=== PATIENT | female | born 1965 | race Caucasian/White ===

== ENCOUNTER 2021-12-15 12:09 | Outpatient (CLI) | payer OTHER, SELFPAY ==
--- NOTE | ~2021-12-15 | XR_ITS ---
XR elbow RT min 3V DATE: 12/15/2021 12:39 INDICATION: Distal humeral fracture TECHNIQUE: 4 views of right elbow COMPARISON: None FINDINGS: There is osteoarthritic change at the articulation of the humerus and ulna, including joint space narrowing and spurring the coronoid process. No fracture or dislocation or joint effusion. No periosteal reaction or bone destruction is detected. IMPRESSION: Osteoarthritis No recent fracture, dislocation or joint effusion is detected Reviewed, dictated and finalized at location B.
[2021-12-15 12:30] LABS: Basophils Absolute Auto 0.05 K/mm3 (0.00-0.10); Basophils Percent Auto 0.8 % (0.0-1.0); Eosinophils Absolute Auto 0.07 K/mm3 (0.02-0.50); Eosinophils Percent Auto 1.1 % (1.0-6.0); Hematocrit 42.1 % (35.0-49.0); Hemoglobin 14.4 g/dL (12.0-15.0); Immature Granulocyte Absolute 0.02 K/mm3 (0.00-0.00); Immature Granulocyte Percent A 0.3 % (0.0-0.0); Lymphocytes Absolute Auto 2.04 K/mm3 (1.10-4.50); Mean Corpuscular HGB Conc 34.2 g/dL (32.0-36.0); Mean Corpuscular Hemoglobin 34.8 pg (27.0-31.0); Mean Corpuscular Volume 101.7 fL (78.0-102.0); Mean Platelet Volume 8.9 fl (9.2-11.8); Monocytes Absolute Auto 0.48 K/mm3 (0.10-0.90); Monocytes Percent Auto 7.3 % (2.0-11.0); Neutrophils Absolute Auto 3.9 K/mm3 (1.7-7.2); Neutrophils Percent Auto 59.5 % (50.0-70.0); Platelet Count Result 339 K/mm3 (150-420); Red Blood Count 4.14 M/mm3 (4.20-5.40); Red Cell Distribution Width 16.4 % (11.6-14.4); White Blood Count 6.6 K/mm3 (4.8-10.8)
[2021-12-15 12:40] LABS: Add Urine Microscopic? YES; Appearance Urine Clear (Clear); Bilirubin Urine Negative (Negative); Blood Urine 2+ (Negative); Color Urine Yellow (Yellow); Glucose Urine UA Negative (Negative); Ketones Urine Negative (Negative); Leukocyte Esterase Ur Negative (Negative); Nitrate Urine Negative (Negative); Protein Urine Trace (Negative); Specific Grav Ur 1.025 (1.010-1.020); pH Urine 6.5 (5.0-8.0)
[2021-12-15 12:50] LABS: WBC Urine 0-3 /hpf (0-3)
[2021-12-15 12:51] LABS: Bacteria Urine Trace /hpf; Calcium Oxalate Crystals Urine Present /hpf; Squamous Epithelial Cell Urine Few /hpf (Few)
[2021-12-15 12:52] LABS: Mucus Urine Few /lpf
[2021-12-15 12:59] LABS: Alanine Aminotransferase 17 U/L (14-59); Albumin Level 3.9 g/dL (3.4-5.0); Alkaline Phosphatase 73 U/L (46-116); Anion Gap 10 mmol/L (8-16); Aspartate Amino Transferase 15 U/L (15-37); Bilirubin,Total 0.4 mg/dL (0.00-1.00); Blood Urea Nitrogen 11 mg/dL (7-18); Calcium 9.3 mg/dL (8.5-10.1); Carbon Dioxide 26 mmol/L (21-32); Chloride 101 mmol/L (98-108); Estimated Glomerular Filt Rate > 60; Glucose 99 mg/dL (70-99); Osmolality Calculated 283 mOsm/kg (285-295); Sodium 137 mmol/L (136-145); Thyroid Stimulating Hormone 1.63 uIU/mL (0.36-3.74); Total Protein 7.9 g/dL (6.4-8.2)
== END 2021-12-15 12:10 | disposition home or self-care (01) ==
LOC: CHSLAB 12:16
PROVIDERS: PCP Family Medicine; Visit Provider Family Medicine
DX: S42.401D Unspecified fracture of lower end of right humerus, subsequent encounter for fracture with routine healing (principal); I10 Essential (primary) hypertension
CPT/HCPCS: 36415; 73080; 80053; 81001; 84443; 85025

== ENCOUNTER 2021-12-30 09:59 | Outpatient (RCR) | payer OTHER, SELFPAY ==
--- NOTE | 2021-12-30 10:56 | OTOPEVAL ---
Thank you for referring Maria Antonia Reed to [facility].? The patient is scheduled to be seen for therapy? ____x/week for ___ weeks. Please review, sign, date and return this plan of care DANIEL. I agree with and certify that the following plan of care is medically necessary. Referring Physician Date Admitting Provider: Attending Provider: Smith Gallardo MD Referring Provider: *OT Outpatient Evaluation Start: 12/30/21 07:12 Freq: Status: Active Protocol: Document 12/30/21 10:00 [facility] (Rec: 12/30/21 10:55 [facility] [id number]) Therapy Assessment Status Assessment Status Assessment Status Evaluation Outpatient Past Medical History Cardiovascular History Hx Hypertension Yes Evaluation Information Problem Diagnosis Decreased R elbow ROM Onset 09/30/21 Cause R elbow fracture Additional Evaluation Detail Quick DASH: 6.8% Subjective Information Patient reports that she Query Text:As Reported By Patient/ fractured her R elbow on . A police sergeant precinct was attempting to handcuff her and twisted her arm behind her back. Patient was splinted on 10/02/21 for ~4-6 weeks and reports that she had an X-ray recently that reported her fracture was healed. Patient also reports some numbness in her R thumb. Patient reports that her primary concern is limited ROM in the R elbow. Patient notes some pain with R elbow flexion and extension. Patient is independent with all ADLs and currently does not work. Diagnostic Tests X-Rays For This Problem Yes Prior Level of Function Activity Level (Last 3 Months) Hand Dominance Right Activity of Daily Living Ability Independent Indoor/Home Mobility Independent Community Mobility Independent Stairs Ability Independent Functional Cognition (Planning, Shopping Independent , Taking Medications) Cooking Yes Cleaning Yes Laundry Yes Shopping Yes Driving Yes Pain Assessment Timing of Pain Assessment Timing of Pain Assessment Assessment Pain Scale Pain Scale Used Numeric (1 - 10) Self Report Pain Assessment Right Elbow(s) Reported Pain Lev
--- NOTE | 2021-12-30 10:56 | OTOPEVAL ---
Thank you for referring Maria Antonia Reed to [facility].? The patient is scheduled to be seen for therapy? ____x/week for ___ weeks. Please review, sign, date and return this plan of care DANIEL. I agree with and certify that the following plan of care is medically necessary. Referring Physician Date Admitting Provider: Attending Provider: Smith Gallardo MD Referring Provider: *OT Outpatient Evaluation Start: 12/30/21 07:12 Freq: Status: Active Protocol: Document 12/30/21 10:00 [facility] (Rec: 12/30/21 10:55 [facility] [id number]) Therapy Assessment Status Assessment Status Assessment Status Evaluation Outpatient Past Medical History Cardiovascular History Hx Hypertension Yes Evaluation Information Problem Diagnosis Decreased R elbow ROM Onset 09/30/21 Cause R elbow fracture Additional Evaluation Detail Quick DASH: 6.8% Subjective Information Patient reports that she Query Text:As Reported By Patient/ fractured her R elbow on . A account officer was attempting to handcuff her and twisted her arm behind her back. Patient was splinted on 10/02/21 for ~4-6 weeks and reports that she had an X-ray recently that reported her fracture was healed. Patient also reports some numbness in her R thumb. Patient reports that her primary concern is limited ROM in the R elbow. Patient notes some pain with R elbow flexion and extension. Patient is independent with all ADLs and currently does not work. Diagnostic Tests X-Rays For This Problem Yes Prior Level of Function Activity Level (Last 3 Months) Hand Dominance Right Activity of Daily Living Ability Independent Indoor/Home Mobility Independent Community Mobility Independent Stairs Ability Independent Functional Cognition (Planning, Shopping Independent , Taking Medications) Cooking Yes Cleaning Yes Laundry Yes Shopping Yes Driving Yes Pain Assessment Timing of Pain Assessment Timing of Pain Assessment Assessment Pain Scale Pain Scale Used Numeric (1 - 10) Self Report Pain Assessment Right Elbow(s) Reported Pain Lev
== END 2022-01-05 18:22 | disposition home or self-care (01) ==
LOC: CHSOT 09:59
PROVIDERS: PCP Family Medicine; Visit Provider Family Medicine
DX: M25.521 Pain in right elbow (principal)
CPT/HCPCS: 97110; 97140; 97165

== ENCOUNTER 2022-01-23 09:12 | Outpatient (CLI) | payer OTHER, SELFPAY ==
--- NOTE | ~2022-01-23 | CT_ITS ---
EXAMINATION:CT lung screening DATE: 01/23/2022 09:34 INDICATION: Personal history of nicotine dependence. Current smoker. TECHNIQUE: Computed tomography (CT) of the chest was performed without intravenous contrast. Automate d exposure control and iterative reconstruction technique were employed. The dose-length product (DLP ) was 84.23 mGy-cm. COMPARISON: None. FINDINGS: There is mild emphysema. There is mild atelectasis bilaterally. A calcified left lung nodul e and calcified left hilar and mediastinal lymph nodes are consistent with old granulomatous disease. No pleural effusion. The heart size is normal. There are coronary artery calcifications. No pericard ial effusion. There is diffuse hepatic steatosis. There is mild thoracic spondylosis. IMPRESSION: 1. Lung-RADS category 1: Negative. Continue annual screening with noncontrast low-dose chest CT in 12 months. Reviewed, dictated and finalized at location A. IMPRESSION: 1. Lung-RADS category 1: Negative. Continue annual screening with noncontrast l ow-dose chest CT in 12 months.
== END 2022-01-23 09:13 | disposition home or self-care (01) ==
LOC: CHSIMG 09:17
PROVIDERS: PCP Family Medicine; Visit Provider Family Medicine
DX: Z12.2 Encounter for screening for malignant neoplasm of respiratory organs (principal); Z87.891 Personal history of nicotine dependence
CPT/HCPCS: 71271

== ENCOUNTER 2022-07-27 07:00 | Outpatient (CLI) | payer OTHER, SELFPAY ==
[2022-07-27 07:19] LABS: Basophils Absolute Auto 0.08 K/mm3 (0.00-0.10); Eosinophils Absolute Auto 0.26 K/mm3 (0.02-0.50); Eosinophils Percent Auto 3.2 % (1.0-6.0); Immature Granulocyte Absolute 0.02 K/mm3 (0.00-0.00); Immature Granulocyte Percent A 0.2 % (0.0-0.0); Lymphocytes Absolute Auto 2.57 K/mm3 (1.10-4.50); Lymphocytes Percent Auto 31.6 % (18.0-42.0); Mean Corpuscular HGB Conc 32.6 g/dL (32.0-36.0); Mean Corpuscular Hemoglobin 32.7 pg (27.0-31.0); Mean Corpuscular Volume 100.5 fL (78.0-102.0); Mean Platelet Volume 9.1 fl (9.2-11.8); Monocytes Absolute Auto 0.67 K/mm3 (0.10-0.90); Monocytes Percent Auto 8.2 % (2.0-11.0); Neutrophils Absolute Auto 4.5 K/mm3 (1.7-7.2); Neutrophils Percent Auto 55.8 % (50.0-70.0); Platelet Count Result 357 K/mm3 (150-420); Red Blood Count 4.28 M/mm3 (4.20-5.40); Red Cell Distribution Width 12.5 % (11.6-14.4); White Blood Count 8.1 K/mm3 (4.8-10.8)
[2022-07-27 07:58] LABS: Creatinine Urine 146.07 mg/dL (40-278); MALB Creatinine Ratio 8.8 mg/g (0-30); Microalbumin Urine Random < 13.0 mg/L
[2022-07-27 08:37] LABS: Anion Gap 8 mmol/L (8-16); Blood Urea Nitrogen 10 mg/dL (7-18); Calcium 9.6 mg/dL (8.5-10.1); Carbon Dioxide 30 mmol/L (21-32); Chloride 106 mmol/L (98-108); Cholesterol 260 mg/dL (0-200); Estimated Glomerular Filt Rate 58; Glucose 103 mg/dL (70-99); HDL Direct 64 mg/dL (40-60); LDL Cholesterol Calculated 175 mg/dL (<130); Osmolality Calculated 297 mOsm/kg (285-295); Potassium 5.3 mmol/L (3.5-5.1); Sodium 144 mmol/L (136-145); Triglycerides 105 mg/dL (0-150)
== END 2022-07-27 07:01 | disposition home or self-care (01) ==
LOC: CHSLAB 07:02
PROVIDERS: PCP Family Medicine; Visit Provider Family Medicine
DX: I10 Essential (primary) hypertension (principal)
CPT/HCPCS: 36415; 80048; 80061; 82043; 85025

== ENCOUNTER 2022-11-20 07:16 | Outpatient (CLI) | payer OTHER, SELFPAY ==
[2022-11-20 07:28] LABS: Appearance Urine Clear (Clear); Basophils Percent Auto 1.2 % (0.0-1.0); Bilirubin Urine Negative (Negative); Blood Urine 1+ (Negative); Color Urine Yellow (Yellow); Eosinophils Absolute Auto 0.24 K/mm3 (0.02-0.50); Eosinophils Percent Auto 2.8 % (1.0-6.0); Glucose Urine UA Negative (Negative); Hematocrit 42.4 % (35.0-49.0); Hemoglobin 14.3 g/dL (12.0-15.0); Immature Granulocyte Absolute 0.04 K/mm3 (0.00-0.00); Immature Granulocyte Percent A 0.5 % (0.0-0.0); Ketones Urine Negative (Negative); Leukocyte Esterase Ur Negative (Negative); Lymphocytes Absolute Auto 2.21 K/mm3 (1.10-4.50); Lymphocytes Percent Auto 25.5 % (18.0-42.0); Mean Corpuscular HGB Conc 33.7 g/dL (32.0-36.0); Mean Corpuscular Hemoglobin 33.6 pg (27.0-31.0); Mean Corpuscular Volume 99.5 fL (78.0-102.0); Mean Platelet Volume 8.5 fl (9.2-11.8); Monocytes Absolute Auto 0.48 K/mm3 (0.10-0.90); Monocytes Percent Auto 5.5 % (2.0-11.0); Neutrophils Absolute Auto 5.6 K/mm3 (1.7-7.2); Neutrophils Percent Auto 64.5 % (50.0-70.0); Nitrate Urine Negative (Negative); Platelet Count Result 321 K/mm3 (150-420); Protein Urine Negative (Negative); Red Blood Count 4.26 M/mm3 (4.20-5.40); Red Cell Distribution Width 13.2 % (11.6-14.4); Urobilinogen Urine 0.2 mg/dL (0.2-1.0); White Blood Count 8.7 K/mm3 (4.8-10.8)
[2022-11-20 07:52] LABS: Add Urine Microscopic? YES; Bacteria Urine 1+ /hpf; RBC Urine 0-2 /hpf (0-2); Squamous Epithelial Cell Urine Few /hpf (Few); WBC Urine None seen /hpf (0-3)
[2022-11-20 08:33] LABS: Alanine Aminotransferase 23 U/L (14-59); Albumin Level 4.5 g/dL (3.4-5.0); Alkaline Phosphatase 64 U/L (46-116); Anion Gap 9 mmol/L (8-16); Aspartate Amino Transferase 23 U/L (15-37); Bilirubin,Total 0.3 mg/dL (0.00-1.00); Blood Urea Nitrogen 14 mg/dL (7-18); Calcium 9.6 mg/dL (8.5-10.1); Carbon Dioxide 27 mmol/L (21-32); Chloride 99 mmol/L (98-108); Estimated Glomerular Filt Rate > 60; Glucose 111 mg/dL (70-99); Osmolality Calculated 281 mOsm/kg (285-295); Potassium 4.9 mmol/L (3.5-5.1); Sodium 135 mmol/L (136-145); Total Protein 8.2 g/dL (6.4-8.2)
== END 2022-11-20 07:17 | disposition home or self-care (01) ==
LOC: CHSLAB 07:18
PROVIDERS: PCP Family Medicine; Visit Provider Family Medicine
DX: I10 Essential (primary) hypertension (principal)
CPT/HCPCS: 36415; 80053; 81001; 85025

== ENCOUNTER 2023-02-04 19:41 | Emergency (ER) | payer OTHER, SELFPAY ==
[2023-02-04] VITALS (9 sets, daily range): BP systolic 108–142; BP diastolic 53–92; PULSE 89–110; RESP 14–20; TEMP 36.7; O2SAT 95–99
--- NOTE | ~2023-02-04 | XR_ITS ---
EXAMINATION: XR chest 1V portable INDICATION: Chest pain TECHNIQUE: Portable AP chest at 2009 hours COMPARISON: None available FINDINGS: The lungs are free of acute opacities. No pleural effusion or pneumothorax. The cardiomedia stinal silhouette is normal. IMPRESSION: 1. No acute cardiopulmonary abnormality. Reviewed, dictated and finalized at location F.
--- NOTE | 2023-02-04 19:45 | ECG_ITS ---
Measurements Intervals [place] Rate: 101 P: 53 GA: 148 QRS: 40 QRSD: 80 T: 32 QT: 345 QTc: 448 Interpretive Statements SINUS TACHYCARDIA POSSIBLE LEFT ATRIAL ENLARGEMENT [-0.1mV P-WAVE IN V1/V2] LOW QRS VOLTAGE IN PRECORDIAL LEADS [QRS DEFLECTION < 1.0 mV IN CHEST LEADS] CANNOT RULE OUT PREVIOUS ANTEROSEPTAL NH ABNORMAL ECG NO PREVIOUS ECG AVAILABLE FOR COMPARISON Electronically Signed On 02-05-2023 7:38:35 CDT by Fran Jimenes M.D.
--- NOTE | 2023-02-04 19:49 | ED.GENADULT ---
HPI - General Adult General Chief complaint: Chest Pain Stated complaint: dizzy, Lt arm numb, c/p Time Seen by Provider: 02/04/23 19:42 History of Present Illness HPI narrative: Maria Antonia is a 57F with a PMH of HTN, HLD, tobacco abuse that presented to the ED with chest pain that radiates down her arm. The pain started around 1500. It was first a tingling in the left hand that then radiated to the left chest then she had chest heaviness, dyspnea and nausea but no vomiting. She has also had a few episodes of diarrhea and she has been in the heat all day. Related Data Home Medications Medication Instructions Recorded Confirmed amlodipine 10 mg-benazepril 20 mg 10 - 20 cap PO 02/04/23 capsule aripiprazole 10 mg tablet 10 mg PO 02/04/23 carbamazepine 100 mg chewable 100 mg PO 02/04/23 tablet folic acid 1 mg tablet 1 mg PO 02/04/23 metoprolol succinate 25 mg 25 mg PO 02/04/23 tablet,extended release 24 hr multivitamin tablet 02/04/23 thiamine HCl (vitamin B1) 100 mg 100 mg PO 02/04/23 tablet trazodone 50 mg tablet 50 mg PO 02/04/23 venlafaxine 75 mg tablet 75 mg PO 02/04/23 Allergies Allergy/AdvReac Type Severity Reaction Status Date / Time prednisone Allergy Anxiety Verified 02/04/23 20:02 Review of Systems Review of Systems: All systems reviewed & are unremarkable except as noted in HPI and below Exam Const: General: healthy appearing and no acute distress Nutritional Appearance: well nourished Orientation/consciousness: patient oriented x3 HENMT: Head: normal to inspection Ears: external ears normal Eyes: Conjunctivae: conjunctivae normal Pupils: Equal, round and reactive pupils present Neck: Neck: normal visual inspection Chest: Chest palpation & inspection: normal inspection of the chest Resp: Effort & Inspection: normal respiratory effort Auscultation: clear to auscultation bilaterally Cardio: Rate: regular rate and tachycardic Rhythm: regular rhythm GI: Inspection: non-distended GI Palp: Yes Soft to palpation, No Tenderness to palpation present (GI) and No Guarding due to palpation present (GI) Auscultation: normal bowel sounds Back/Spine/Pelvis: Back: no CVA tenderness Skin: General skin exam: normal color Rashes: no rashes Neuro: General: patient oriented x3 and moves all extremities Cranial nerves: Yes Nystagmus not present Extrem: General: normal to inspection Psych: Mental Status: mental status grossly normal Course Course Emergency Course: Ordered EKG, labs, CXR and fluids EKG showed NSR with a rate of 101, no ST elevation or ectopy EXAMINATION: XR chest 1V portable INDICATION: Chest pain TECHNIQUE: Portable AP chest at 2009 hours COMPARISON: None available FINDINGS: The lungs are free of acute opacities. No pleural effusion or pneumothorax. The cardiomediastinal silhouette is normal. IMPRESSION: 1. No acute cardiopulmonary abnormality. Labs showed mild hyponatremia and hypokalemia and moderate low magnesium so it was replaced with another liter fluid. Troponin was normal but given risk factors it will be repeated at 3 hours. Repeat troponin was wnl Vital Signs Vital signs: Vital Signs Temperature 98.1 F 02/04/23 19:41 Pulse Rate 110 H 02/04/23 19:41 Respiratory Rate 20 02/04/23 19:41 Blood Pressure 142/92 H 02/04/23 19:41 Pulse Oximetry 95 02/04/23 19:41 Oxygen Delivery Room Air 02/04/23 19:41 Temperature 98.1 F 02/04/23 19:41 Pulse Rate 92 02/04/23 23:51 Respiratory Rate 14 02/04/23 22:30 Blood Pressure 108/62 02/04/23 23:51 Pulse Oximetry 95 02/04/23 23:51 Oxygen Delivery Room Air 02/04/23 23:51 Medical Decision Making Vital Signs Vital Signs: Vital Signs Temperature 98.1 F 02/04/23 19:41 Pulse Rate 110 H 02/04/23 19:41 Respiratory Rate 20 02/04/23 19:41 Blood Pressure 142/92 H 02/04/23 19:41 Pulse Oximetry 95 02/04/23 19:41 Oxygen Delivery Room Air 02/04/23 19:41
[2023-02-04] MEDS: SODIUM CHLORIDE 0.9% IV 1,000 ML 999 ML IV CONT (20:03)
--- NOTE | 2023-02-04 20:05 | PC.NURSE ---
2004-pxr being performed at bedside by david bone
--- NOTE | 2023-02-04 20:28 | PC.NURSE ---
2016-renae, labor delivery rn arrives at bedside 2010-lab contacted
[2023-02-04 20:43] LABS: Basophils Absolute Auto 0.08 K/mm3 (0.00-0.10); Eosinophils Absolute Auto 0.06 K/mm3 (0.02-0.50); Eosinophils Percent Auto 0.8 % (1.0-6.0); Hematocrit 38.6 % (35.0-49.0); Hemoglobin 13.3 g/dL (12.0-15.0); Immature Granulocyte Absolute 0.03 K/mm3 (0.00-0.00); Immature Granulocyte Percent A 0.4 % (0.0-0.0); Lymphocytes Absolute Auto 2.92 K/mm3 (1.10-4.50); Lymphocytes Percent Auto 37.5 % (18.0-42.0); Mean Corpuscular HGB Conc 34.5 g/dL (32.0-36.0); Mean Corpuscular Hemoglobin 33.6 pg (27.0-31.0); Mean Corpuscular Volume 97.5 fL (78.0-102.0); Mean Platelet Volume 8.4 fl (9.2-11.8); Monocytes Absolute Auto 0.75 K/mm3 (0.10-0.90); Monocytes Percent Auto 9.6 % (2.0-11.0); Neutrophils Absolute Auto 3.9 K/mm3 (1.7-7.2); Neutrophils Percent Auto 50.7 % (50.0-70.0); Platelet Count Result 352 K/mm3 (150-420); Red Blood Count 3.96 M/mm3 (4.20-5.40); Red Cell Distribution Width 12.3 % (11.6-14.4); White Blood Count 7.8 K/mm3 (4.8-10.8)
[2023-02-04 20:54] LABS: Lactic Acid Reflex 3.2 mmol/L (0.4-2.0)
[2023-02-04 20:59] LABS: Alanine Aminotransferase 21 U/L (14-59); Albumin Level 3.8 g/dL (3.4-5.0); Alkaline Phosphatase 60 U/L (46-116); Anion Gap 11 mmol/L (8-16); Aspartate Amino Transferase 20 U/L (15-37); Bilirubin,Total 0.2 mg/dL (0.00-1.00); Blood Urea Nitrogen 9 mg/dL (7-18); CRP 0.9 mg/dL (0.0-0.9); Calcium 8.8 mg/dL (8.5-10.1); Carbon Dioxide 25 mmol/L (21-32); Chloride 95 mmol/L (98-108); Estimated CRCL calculation 59 ml/min; Estimated Glomerular Filt Rate 58; Ethanol 58 mg/dL (0-6); Glucose 74 mg/dL (70-99); Lipase 46 U/L (16-77); Magnesium 1.5 mg/dL (1.8-2.4); NT Pro B Type Natriuretic Pept 391 pg/mL (0-125); Osmolality Calculated 269 mOsm/kg (285-295); Potassium 3.4 mmol/L (3.5-5.1); Sodium 131 mmol/L (136-145); Total Protein 7.1 g/dL (6.4-8.2); Troponin I 14.9 ng/L (0.00-60.4)
--- NOTE | 2023-02-04 21:05 | PC.NURSE ---
2100-check writer present at bedside pt appears to be resting, easily aroused by voice. check writer reminded pt of needing urine specimen. pt verbalized able to go at this time. pt noted to be ambulatory to and from restroom, with steady gait and without incident. pt expresses chest pressure/pain 2/10 pain rating, she denies sob at this time. o2 sat remains 95-100%, with resp 14-18 easy, even and nl. pt requested additional blanket and provided with. pt denies any additional needs. call light remains in reach. check writer collected urine specimen and walked to lab.
--- NOTE | 2023-02-04 21:10 | PC.NURSE ---
2109-physician at bedside, speaking with pt.
[2023-02-04 21:13] LABS: Amphetamine Screen Urine Negative (Negative); Barbiturate Screen Urine Negative (Negative); Benzodiazepines Screen Urine Negative (Negative); Cannabinoid Screen Urine Positive (Negative); Cocaine Screen Urine Negative (Negative); Methadone Screen Urine Negative (Negative); Opiate Screen Urine Negative (Negative); Phencyclidine Screen Urine Negative (Negative)
[2023-02-04 21:21] LABS: Reflex Lactic Acid Yes or No Add Lactic
[2023-02-04] MEDS: MAGNESIUM SULF 4 GM/WATER100ML 4 GM/100 ML BAG IVPB (21:21)
[2023-02-04] MEDS: SODIUM CHLORIDE 0.9% IV 1,000 ML 999 ML (21:28)
[2023-02-04] MEDS: MAG HYDROX/ALUMINUM HYD/SIMETH 30 ML, PHENobarb/HYOSCY/ATROPINE/SCOP 32.4 MG, LIDOCAINE... PO (22:34)
--- NOTE | 2023-02-04 22:47 | PC.NURSE ---
8815-check writer contacted lab to make aware of repeat trop to be drawn at [id number]. pam macdonald acknowledged.
--- NOTE | 2023-02-04 23:21 | PC.NURSE ---
2321-repeat trop drawn by fha underwriter, walked to lab and renae orozco contacted regarding specimen drop off.
[2023-02-04 23:46] LABS: Lactic Acid 1.8 mmol/L (0.4-2.0); Troponin I 17.5 ng/L (0.00-60.4)
== END 2023-02-05 00:05 | disposition home or self-care (01) ==
PROVIDERS: Emergency Provider Family Medicine; PCP Family Medicine
DX: E86.0 Dehydration (principal); R07.9 Chest pain, unspecified
CPT/HCPCS: 36415; 71045; 80053; 80307; 83605; 83690; 83735; 83880; 84484; 85025; 85610; 86140; 93005; 96361; 96365; 99284; A9270; J3475; J7030

== ENCOUNTER 2023-02-23 11:50 | Emergency (ER) | payer OTHER, SELFPAY ==
[2023-02-23 11:50] VITALS: BP 142/96; PULSE 95; RESP 20; TEMP 36.9; O2SAT 99
--- NOTE | 2023-02-23 12:09 | ECG_ITS ---
Measurements Intervals [place] Rate: 81 P: 55 [place]: 148 QRS: 60 QRSD: 89 T: 62 QT: 388 QTc: 452 Interpretive Statements SINUS RHYTHM INCOMPLETE RIGHT BUNDLE BRANCH BLOCK BORDERLINE T WAVE ABNORMALITY- ANTERIOR LEADS BORDERLINE ECG COMPARED TO ECG 02/04/2023 19:53:51 SINUS RHYTHM NOW PRESENT T-WAVE ABNORMALITY NOW PRESENT Electronically Signed On 02-23-2023 13:06:33 CDT by Chacorta Cardoso D.O.
--- NOTE | 2023-02-23 12:11 | ED.PSYCH ---
HPI - Psych General Chief Complaint: Psychiatric Symptoms Stated Complaint: mental health eval Time Seen by Provider: 02/23/23 12:07 Source: patient Mode of arrival: ambulatory Limitations: no limitations History of Present Illness HPI Narrative: Patient is a 57-year-old female who is homeless and out of all her medications for a bit of time now For the past month. She is having some suicidal thoughts but not a plan. She came to the ER to try to get back on track. MD complaint: suicidal ideation and feels depressed Onset (ago): week(s) Duration: constant History of same: Yes Relieving factors: none Exacerbating factors: other ( out of her medication and homeless) Associated psychiatric symptoms: depression and suicidal ideation Associated symptoms: denies other symptoms Treatments prior to arrival: none Related Data Home Medications Medication Instructions Recorded Confirmed amlodipine 10 mg-benazepril 20 mg 10 - 20 cap PO 02/04/23 capsule aripiprazole 10 mg tablet 10 mg PO 02/04/23 carbamazepine 100 mg chewable 100 mg PO 02/04/23 tablet folic acid 1 mg tablet 1 mg PO 02/04/23 metoprolol succinate 25 mg 25 mg PO 02/04/23 tablet,extended release 24 hr multivitamin tablet 02/04/23 thiamine HCl (vitamin B1) 100 mg 100 mg PO 02/04/23 tablet trazodone 50 mg tablet 50 mg PO 02/04/23 venlafaxine 75 mg tablet 75 mg PO 02/04/23 Allergies Allergy/AdvReac Type Severity Reaction Status Date / Time prednisone Allergy Anxiety Verified 02/04/23 20:02 Review of Systems Review of Systems: All systems reviewed & are unremarkable except as noted in HPI and below Constitutional: Constitutional: Reports no additional constitutional complaints Eyes: Eyes: Reports no additional eye complaints ENT: Reports system reviewed and no additional complaints, except as documented Cardiovascular: Cardiovascular: Reports no additional cardiovascular complaints Respiratory: Respiratory: Reports no additional respiratory complaints Gastrointestinal: Gastrointestinal: Reports no additional gastrointestinal complaints Genitourinary: Genitourinary: Reports no additional female genitourinary complaints Musculoskeletal: Musculoskeletal: Reports no additional musculoskeletal complaints Integumentary/Breasts: Skin/Breast: Reports system reviewed and no additional complaints, except as docu Neurologic: Reports system reviewed and no additional complaints, except as documented Psychiatric: Psychiatric: Reports no additional psychiatric complaints Endocrine: Endocrine: Reports no additional endocrine complaints Hematologic/Lymphatic: Hematologic/Lymphatic: Reports no additional hematologic/lymphatic complaints Allergic/Immunologic: Allergic/Immunologic: Reports no additional allergic/immunologic complaints PMFSH Social History Social History Substance use type: marijuana Gender identity (if verbalized by the patient): Female Sexual Orientation (if Verbalized by the Patient): Lesbian, Gonzalez, or Homosexual Exam Const: General: healthy appearing, no acute distress and alert Nutritional Appearance: well nourished Orientation/consciousness: patient oriented x3 Limitations: no limitations HENMT: Head: normal to inspection Ears: external ears normal Face/Nose/Sinus: Normal external nose present Eyes: Conjunctivae: conjunctivae normal Pupils: Equal, round and reactive pupils present EOM: EOMs intact bilaterally Neck: Neck: normal visual inspection Chest: Chest palpation & inspection: normal inspection of the chest Resp: Effort & Inspection: normal respiratory effort Auscultation: clear to auscultation bilaterally Cardio: Rate: regular rate Rhythm: regular rhythm Heart sounds: no murmurs GI: Inspection: non-distended GI Palp: Yes Soft to palpation, No Tenderness to palpation present (GI), No Guarding due to palpation present (GI) and No Rigid due t
[2023-02-23 12:26] LABS: Appearance Urine Clear (Clear); Bilirubin Urine Negative (Negative); Blood Urine Trace-Intact (Negative); Color Urine Light Yellow (Yellow); Glucose Urine UA Negative (Negative); Ketones Urine Negative (Negative); Leukocyte Esterase Ur Negative LEU/UL (Negative); Nitrate Urine Negative (Negative); Protein Urine Negative (Negative); Urobilinogen Urine 0.2 mg/dL (0.2-1.0)
[2023-02-23 12:28] LABS: Basophils Absolute Auto 0.06 K/mm3 (0.00-0.10); Basophils Percent Auto 0.9 % (0.0-1.0); Eosinophils Absolute Auto 0.12 K/mm3 (0.02-0.50); Eosinophils Percent Auto 1.9 % (1.0-6.0); Hematocrit 39.7 % (35.0-49.0); Hemoglobin 13.5 g/dL (12.0-15.0); Immature Granulocyte Absolute 0.02 K/mm3 (0.00-0.00); Immature Granulocyte Percent A 0.3 % (0.0-0.0); Lymphocytes Absolute Auto 2.05 K/mm3 (1.10-4.50); Lymphocytes Percent Auto 32.4 % (18.0-42.0); Mean Corpuscular Hemoglobin 33.6 pg (27.0-31.0); Mean Corpuscular Volume 98.8 fL (78.0-102.0); Mean Platelet Volume 8.9 fl (9.2-11.8); Monocytes Absolute Auto 0.54 K/mm3 (0.10-0.90); Monocytes Percent Auto 8.5 % (2.0-11.0); Neutrophils Absolute Auto 3.5 K/mm3 (1.7-7.2); Platelet Count Result 335 K/mm3 (150-420); Red Blood Count 4.02 M/mm3 (4.20-5.40); Red Cell Distribution Width 12.4 % (11.6-14.4); White Blood Count 6.3 K/mm3 (4.8-10.8)
[2023-02-23 12:32] LABS: Add Urine Microscopic? YES; Bacteria Urine Trace /hpf; RBC Urine 0-2 /hpf (0-2); Squamous Epithelial Cell Urine Rare /hpf (Few); WBC Urine None seen /hpf (0-3)
[2023-02-23 12:33] LABS: Amphetamine Screen Urine Negative (Negative); Barbiturate Screen Urine Negative (Negative); Benzodiazepines Screen Urine Negative (Negative); Cannabinoid Screen Urine Positive (Negative); Cocaine Screen Urine Negative (Negative); Methadone Screen Urine Negative (Negative); Opiate Screen Urine Negative (Negative); Phencyclidine Screen Urine Negative (Negative)
[2023-02-23 12:44] LABS: Alanine Aminotransferase 20 U/L (14-59); Albumin Level 3.5 g/dL (3.4-5.0); Alkaline Phosphatase 81 U/L (46-116); Anion Gap 8 mmol/L (8-16); Aspartate Amino Transferase 14 U/L (15-37); Bilirubin,Total 0.2 mg/dL (0.00-1.00); Blood Urea Nitrogen 6 mg/dL (7-18); Calcium 9.1 mg/dL (8.5-10.1); Carbon Dioxide 29 mmol/L (21-32); Chloride 104 mmol/L (98-108); Estimated CRCL calculation 56 ml/min; Estimated Glomerular Filt Rate > 60; Glucose 122 mg/dL (70-99); Osmolality Calculated 290 mOsm/kg (285-295); Potassium 3.5 mmol/L (3.5-5.1); Sodium 141 mmol/L (136-145)
[2023-02-23 12:47] LABS: Acetaminophen 0 ug/mL (10-30); Ethanol < 3 mg/dL (0-6)
[2023-02-23 12:54] LABS: Salicylate 7.3 mg/dL (2.8-20.0); Thyroid Stimulating Hormone 1.95 uIU/mL (0.36-3.74)
[2023-02-23] MEDS: NICOTINE (*PBKC) 21 MG PATCH 1 PATCH TRANSDERM (12:59)
[2023-02-23] MEDS: diphenhydrAMINE HCl CAP 25 MG CAPSULE PO (12:59)
[2023-02-23 13:06] LABS: Influenza A QL RT-PCR Negative (Negative); Influenza B QL RT-PCR Negative (Negative); SARS-CoV-2 RNA PCR Negative (Negative)
[2023-02-23 13:08] LABS: RSV RNA, RT-PCR Negative (Negative)
--- NOTE | 2023-02-23 14:01 | PC.NURSE ---
1150 pt arrives , after assessment . meal provided. 1230 sleeping, sitter in doorway 1300 pt resting, no needs at this time 1330 pt resting 1400 [facility] staff here for eval.
--- NOTE | 2023-02-23 14:15 | PC.NURSE ---
counselors in with pt for evaluation.
--- NOTE | 2023-02-23 14:53 | PC.NURSE ---
counselors out of room, sitter back in doorway. [facility]. awaiting decision.
--- NOTE | 2023-02-23 14:54 | PC.NURSE ---
pt upset and crying. requesting something to calm me down . notified.
[2023-02-23] MEDS: LORazepam (*CRX) 0.5 MG TABLET PO (14:57)
--- NOTE | 2023-02-23 16:16 | PC.NURSE ---
1530 pt aware of admission process. attempting to find placement. 1600 pt accepted at [facility]. awaiting call for report. pt resting with sitter at bedside.
[2023-02-23 16:20] VITALS: BP 123/90; PULSE 87; RESP 14; TEMP 36.9; O2SAT 98
[2023-02-23 17:19] VITALS: BP 120/89; PULSE 84; RESP 16; TEMP 37.1; O2SAT 98
--- NOTE | 2023-02-23 17:53 | PC.NURSE ---
1750 pt alert and oriented. loaded to ems cot. stable and appreciative of care received.
== END 2023-02-23 17:50 ==
PROVIDERS: Emergency Provider Emergency Medicine; PCP Family Medicine
DX: F43.0 Acute stress reaction (principal); Z20.822 Contact with and (suspected) exposure to COVID-19
CPT/HCPCS: 36415; 80053; 80307; 81001; 84443; 85025; 87637; 93005; 99285; A9270